=== PATIENT | female | born 1985 | race Caucasian/White ===

== ENCOUNTER 2016-11-12 20:52 | Emergency (ER) | payer SELFPAY ==
[2016-11-12] MEDS ORDERED: SODIUM CHLORIDE 1,000 ML IV STA (21:20)
--- NOTE | 2016-11-12 21:24 | PDOC ---
History of Present Illness <Lowell Perez - Last Filed: 11/12/16 21:30> - General History Source: Patient, Old Records Exam Limitations: No Limitations - History of Present Illness Initial Comments: 11/12/16 21:32 The patient is a 31 year old female with no significant past medical history who presents to the ER with dizziness for a few days. The patient notes that she was recently sick with sore throat, fever, runny nose, cough, and vomiting ( phlegm). Patient noted symptoms began to resolve but 3 days ago a family member became sick with similar symptoms and her symptoms worsened. She notes that she recently went to the doctor and was prescribed antibiotics. PCP: Dr. Kaplan <Hank Bustos - Last Filed: 11/12/16 21:34> - General Chief Complaint: Nausea/Vomiting Stated Complaint: NAUSEA/VOMITING Time Seen by Provider: 11/12/16 21:09 Past History - Psycho/Social/Smoking Cessation Hx Suicidal Ideation: No Smoking History: Never smoked Number of Cigarettes Smoked Daily: 0 Hx Alcohol Use: No Drug/Substance Use Hx: No <Lowell Perez - Last Filed: 11/12/16 21:30> <Hank Bustos - Last Filed: 11/12/16 21:34> - Past Medical History Allergies/Adverse Reactions: Allergies Allergy/AdvReac Type Severity Reaction Status Date / Time No Known Allergies Allergy Verified 04/28/15 20:02 Home Medications: Ambulatory Orders Butalb/Acetaminophen/Caffeine [Fioricet 50-300-40 mg Capsule] 1 each PO Q6H PRN #10 capsule 04/28/15 Acetaminophen/Caffeine/Butalb [Fioricet -] 1 tab PO Q4H #42 tablet 04/02/16 Ibuprofen [Motrin] 600 mg PO TID #30 tablet 04/02/16 Meclizine HCl 25 mg PO TID #30 tablet 04/02/16 Review of Systems - Review of Systems Able to Perform ROS?: Yes Constitutional: Yes: Symptoms Reported, See HPI, Fever HEENTM: Yes: Symptoms Reported, See HPI, Throat Pain, Other (Runny nose) Respiratory: Yes: See HPI, Cough ABD/GI: Yes: Symptoms Reported, See HPI, Vomiting Neurological: Yes: Symptoms reported, See HPI, Dizziness <Hank Bustos - Last Filed: 11/12/16 21:34> *Physical Exam - Physical Exam General Appearance: Yes: Nourished, Appropriately Dressed. No: Apparent Distress HEENT: positive: Normal ENT Inspection, Nasal Congestion, Rhinorrhea. negative : Sinus Tenderness Neck: positive: Supple. negative: Tender Respiratory/Chest: positive: Lungs Clear, Normal Breath Sounds. negative: Respiratory Distress Cardiovascular: positive: Regular Rhythm, Regular Rate Gastrointestinal/Abdominal: positive: Normal Bowel Sounds, Soft Extremity: positive: Normal Capillary Refill, Normal Range of Motion Integumentary: positive: Normal Color. negative: Rash Neurologic: positive: Fully Oriented, Alert, Normal Mood/Affect, Normal Response , Motor Strength 5/5 <Lowell Perez - Last Filed: 11/12/16 21:30> - Vital Signs Last Vital Signs Temp Pulse Resp BP Pulse Ox 97.9 F 98 H 18 134/89 100 11/12/16 21:00 11/12/16 21:00 11/12/16 21:00 11/12/16 21:00 11/12/16 21:00 <Hank Bustos - Last Filed: 11/12/16 21:34> Progress Note - Progress Note Progress Note: MILD DEHYDRATION NO BLOOD WORK PO HYDRATION/FOLLOW UP PMD <Lowell Perez - Last Filed: 11/12/16 21:30> *DC/Admit/Observation/Transfer <Lowell Perez - Last Filed: 11/12/16 21:30> - Attestations Scribe Attestion: 11/12/16 21:32 Documentation prepared by Hank Bustos, acting as medical coding specialist for Lowell Perez MD. <Hank Bustos - Last Filed: 11/12/16 21:34> Diagnosis at time of Disposition: Viral syndrome - Discharge Dispostion Disposition: HOME Condition at time of disposition: Stable - Referrals Referrals: Ronen Kaplan [Primary Care Provider] - Call tomorrow - Patient Instructions Additional Instructions: PLENTY OF FLUIDS (WATER/GATORADE) MOTRIN/TYLENOL FOR FEVER OR PAIN REST RETURN IF FEVER, VOMITING, SHORTNESS OF BREATH CALL YOUR DOCTOR TOMORROW
[2016-11-12 21:31] VITALS: BP 134/89; PULSE 98; TEMP 97.9; BMI 26.4
== END 2016-11-12 21:46 | disposition home or self-care (01) ==
LOC: FER 20:52
DX: B34.9 Viral infection, unspecified (principal)
CPT/HCPCS: 99282-25

== ENCOUNTER 2018-07-01 17:22 | Emergency (ER) | payer OTHER ==
[2018-07-01 17:35] VITALS: BP 119/85; PULSE 96; TEMP 98.4; BMI 35.2
[2018-07-01] MEDS ORDERED: KETOROLAC TROMETHAMINE 30 MG/1 ML VIAL IM ONE (18:13)
--- NOTE | 2018-07-01 18:19 | PDOC ---
History of Present Illness <Zelda Edwards - Last Filed: 07/01/18 18:24> <Melba Ovalles - Last Filed: 07/01/18 21:18> - History of Present Illness Initial Comments: 07/01/18 18:39 This is a 33 year old female with no significant past medical history, who presents to the emergency department today complaining of right lumbar and right buttock pain s/p fall earlier today. Patient states she slipped on ice at 12/1pm today, where she fell directly onto her buttocks. Patient was able to get up after a few minutes without assistance and was able to perform her daily routines but reports worsening pain in her R lower back. Patient took 2 Motrin without any relief. Patient notes her pain is exacerbated with prolonged standing and ambulation, and is alleviated with lying down or bending forward. Denies leg weakness or numbness. Denies saddle anesthesia. Denies incontinence of bowel or bladder. PCP: Dr. Kaplan <Mc Golden - Last Filed: 07/03/18 07:35> - General Chief Complaint: Injury Stated Complaint: FELL, BACK PAIN Time Seen by Provider: 07/01/18 17:30 Past History <Zelda Edwards - Last Filed: 07/01/18 18:24> <Melba Ovalles - Last Filed: 07/01/18 21:18> - Past Medical History COPD: No - Suicide/Smoking/Psychosocial Hx Smoking History: Never smoked Number of Cigarettes Smoked Daily: 0 Hx Alcohol Use: No Drug/Substance Use Hx: No Substance Use Type: None <Mc Golden - Last Filed: 07/03/18 07:35> - Past Medical History Allergies/Adverse Reactions: Allergies Allergy/AdvReac Type Severity Reaction Status Date / Time No Known Allergies Allergy Verified 07/01/18 17:29 Home Medications: Ambulatory Orders Naproxen 500 mg PO BID #14 tablet 07/01/18 Review of Systems - Review of Systems Comments:: 07/01/18 18:41 GENERAL/CONSTITUTIONAL: No fever or chills. No weakness. HEAD, EYES, EARS, NOSE AND THROAT: No change in vision. No ear pain or discharge. No sore throat. CARDIOVASCULAR: No chest pain, no shortness of breath, no loss of consciousness RESPIRATORY: No cough, wheezing, or hemoptysis. GASTROINTESTINAL: No nausea, vomiting, diarrhea or constipation. GENITOURINARY: No dysuria, frequency, or change in urination. MUSCULOSKELETAL: +Right low back pain. +Right buttock pain. No neck pain. SKIN: No rash NEUROLOGIC: No vertigo, no change in strength/sensation. ENDOCRINE: No increased thirst. No abnormal weight change. HEMATOLOGIC/LYMPHATIC: No anemia, easy bleeding, or history of blood clots. ALLERGIC/IMMUNOLOGIC: No hives or skin allergy. <Mc Golden - Last Filed: 07/03/18 07:35> *Physical Exam - Vital Signs Last Vital Signs Temp Pulse Resp BP Pulse Ox 98.4 F 96 H 16 119/85 100 07/01/18 17:27 07/01/18 17:27 07/01/18 17:27 07/01/18 17:27 07/01/18 17:27 <Zelda Edwards - Last Filed: 07/01/18 18:24> - Vital Signs Last Vital Signs Temp Pulse Resp BP Pulse Ox 98.4 F 96 H 16 119/85 100 07/01/18 17:27 07/01/18 17:27 07/01/18 17:27 07/01/18 17:27 07/01/18 17:27 <Melba Ovalles - Last Filed: 07/01/18 21:18> - Vital Signs Last Vital Signs Temp Pulse Resp BP Pulse Ox 98.4 F 96 H 16 119/85 100 07/01/18 17:27 07/01/18 17:27 07/01/18 17:27 07/01/18 17:27 07/01/18 17:27 - Physical Exam Comments: 07/01/18 18:41 GENERAL: Awake, alert, and fully oriented, in no acute distress. HEAD: No signs of trauma EYES: PERRLA, EOMI, sclera anicteric, conjunctiva clear ENT: Auricles normal inspection, hearing grossly normal, nares patent, oropharynx clear without exudates. Moist mucosa NECK: Nontender, no stepoffs, Normal ROM, supple, no lymphadenopathy, JVD, or masses BACK: +Right lumbar paraspinal tenderness with no midline tenderness. No stepoffs. LUNGS: Breath sounds equal, clear to auscultation bilaterally. No wheezes, and no crackles HEART: Regular rate and rhythm, normal S1 and S2, no murmurs, rubs or gallops ABDOMEN: Soft, nontender, normoactive bowel sounds. No guarding, no rebound. No masses EXTREMITIES: Normal range of motion, no edema. No clubbing or cyanosis. No cords, erythema, or tenderness NEUROLOGICAL: Cranial nerves II through XII intact. 5/5 strength and sensation in all extremities, Normal speech, normal gait, normal cerebellar function SKIN: Warm, Dry, normal turgor, no rashes or lesions noted. <Mc Golden - Last Filed: 07/03/18 07:35> ED Treatment Course - ADDITIONAL ORDERS Additional order review: Laboratory Results 07/01/18 18:10 Urine HCG, Qual Negative <Zelda Edwards - Last Filed: 07/01/18 18:24> - ADDITIONAL ORDERS Additional order review: Laboratory Results 07/01/18 18:10 Urine HCG, Qual Negative - Medications Given in the ED: ED Medications Discontinued Medications Generic Name Dose Route Start Last Admin Trade Name Natalee PRN Reason Stop Dose Admin Ketorolac Tromethamine 30 mg 07/01/18 18:13 07/01/18 18:50 Toradol Injection - IM 07/01/18 18:14 30 mg ONCE ONE Administration <Melba Ovalles - Last Filed: 07/01/18 21:18> - RADIOLOGY Radiology Studies Ordered: Category Date Time Status SPINE-LUMBAR SACRAL [RAD] Stat Radiology 07/01/18 18:02 Ordered <Mc Golden - Last Filed: 07/03/18 07:35> Medical Decision Making - Medical Decision Making 07/01/18 18:19 33 F with lower back pain after falling today. Pt with no neuro deficits to suggest cord compression/cauda equina. Exam notable for R paraspinal lumbar tenderness exacerbated by straight leg raise. Consistent with radiculopathy vs disc herniation. - UPT - XR L spine - Pain control XR negative Pt reassessed - ambulatory in ED without issue. Pain well controlled. Neurologically intact. Pt is well appearing, with normal vitals. Clinically stable for DC at this time. I discussed the physical exam findings, ancillary test results and final diagnoses with the patient. I answered all of the patient's questions. The patient was satisfied with the care received and felt comfortable with the discharge plan and treatment plan. The patient agrees to follow up with the primary care physician within 24-72 hours. <Mc Golden - Last Filed: 07/03/18 07:35> *DC/Admit/Observation/Transfer - Attestations Scribe Attestion: 07/01/18 18:24 Documentation prepared by ALFONSO Arguelles, acting as medical scientist for Mc Golden MD. <Zelda Edwards - Last Filed: 07/01/18 18:24> - Discharge Dispostion Decision to Admit order: No <Melba Ovalles - Last Filed: 07/01/18 21:18> - Attestations Physician Attestion: 07/01/18 18:23 I, Dr. Mc Golden MD, attest that this document has been prepared under my direction and personally reviewed by me in its entirety. I further attest, that it accurately reflects all work, treatment, procedures and medical decision -making performed by me. <Mc Golden - Last Filed: 07/03/18 07:35> Diagnosis at time of Disposition: Back pain, Fall, Sciatic nerve pain - Discharge Dispostion Disposition: HOME Condition at time of disposition: Good - Prescriptions Prescriptions: Naproxen 500 mg PO BID #14 tablet - Referrals Referrals: Ronen Kaplan [Primary Care Provider] - Que Preston MD [Staff Physician] - - Patient Instructions Printed Discharge Instructions: DI for Low Back Pain Additional Instructions: Follow up with one of our spine surgeons for further evaluation of your back pain. Call the number provided to make an appointment within 1 week. You will likely need a MRI. If you experience worsening pain, weakness or numbness in your leg, difficulty controlling your bowel or bladder, or any other concerning symptoms, return to the ER immediately. - Post Discharge Activity
[2018-07-01] MEDS ORDERED: KETOROLAC TROMETHAMINE 30 MG/1 ML VIAL ONE (18:36)
== END 2018-07-01 21:33 | disposition home or self-care (01) ==
LOC: FER 17:22
PROC: 3E0233Z Introduction of Anti-inflammatory into Muscle, Percutaneous Approach (ICD-10-PCS; principal; 2018-07-01)
DX: M54.5 Low back pain (principal)
CPT/HCPCS: 72100-TC-FY; 84703; 96372; 99281-25

== ENCOUNTER 2019-08-16 19:23 | Emergency (ER) | payer OTHER ==
[2019-08-16 19:29] VITALS: BP 118/81; PULSE 84; TEMP 98.2; BMI 37.0
[2019-08-16] MEDS ORDERED: ONDANSETRON 4 MG/2 ML VIAL IVPUSH ONE (20:21)
[2019-08-16] MEDS ORDERED: SODIUM CHLORIDE 1,000 ML IV STA (20:21)
[2019-08-16] MEDS ORDERED: KETOROLAC TROMETHAMINE 30 MG/1 ML VIAL IVPUSH ONE (20:21)
[2019-08-16] MEDS ORDERED: KETOROLAC TROMETHAMINE 30 MG/1 ML VIAL ONE (20:30)
[2019-08-16] MEDS ORDERED: ONDANSETRON 4 MG/2 ML VIAL ONE (20:30)
[2019-08-16 20:51] LABS: BASO % 0.9 % (0-2.0); EOS % 2.7 % (0-4.5); HEMOGLOBIN 13.3 GM/dl (10.7-15.3); LYMPH % 40.2 % (8-40); MCH 30.2 pg (25.7-33.7); MCHC 33.9 g/dl (32.0-36.0); MEAN CELL VOLUME 88.9 fl (80-96); MEAN PLT VOLUME 8.8 fl (7.5-11.1); MONO % 7.1 % (3.8-10.2); NEUT % 49.1 % (42.8-82.8); PLATELET COUNT 245 K/MM3 (134-434); RBC 4.39 M/mm3 (3.60-5.2); RDW 12.7 % (11.6-15.6); WHITE BLOOD COUNT 5.2 K/mm3 (4.0-10.8)
[2019-08-16 20:59] LABS: ALBUMIN 3.7 g/dl (3.4-5.0); BILIRUBIN,TOTAL 0.5 mg/dl (0.2-1); CALCIUM 8.6 mg/dl (8.5-10); CREATININE 0.8 mg/dl (0.55-1.3); POTASSIUM 3.7 mmol/L (3.5-5.1); TOT PROT 6.7 g/dl (6.4-8.2)
--- NOTE | 2019-08-16 22:22 | PDOC ---
Documentation entered by Aime Howard SCRIBE, acting as scribe for Giulia Desouza MD. Giulia Desouza MD: This documentation has been prepared by the Lee coburn Elijah, SCRIBE, under my direction and personally reviewed by me in its entirety. I confirm that the documentation accurately reflects all work, treatment, procedures, and medical decision making performed by me. History of Present Illness - General Chief Complaint: Pain, Acute Stated Complaint: BACK PAIN/NAUSEA Time Seen by Provider: 08/16/19 19:34 History Source: Patient Exam Limitations: No Limitations - History of Present Illness Initial Comments: 08/16/19 20:20 Patient is a 34 year old female with no reported significant past medical history who presents today with back pain and vomiting. Patient reports that she generally deals with chronic back pain, nut today she had a sudden onset of worsening back pain that she notes makes it hard for her to move. Patient also reports that she has had NBNB Vomiting for the last x3 days that she associates with lightheaded, abdominal cramps and dizziness. Patient's last meal was at 2 pm which she vomited shortly thereafter. Denies Fever and Diarrhea. Allergies: NKA PCP: Dr. Kaplan Past History - Past Medical History Allergies/Adverse Reactions: Allergies Allergy/AdvReac Type Severity Reaction Status Date / Time No Known Allergies Allergy Verified 07/01/18 17:29 Home Medications: Ambulatory Orders Diclofenac Sodium [Voltaren -] 75 mg PO BID PRN #14 tablet. 08/16/19 Naproxen 500 mg PO BID PRN 08/16/19 Ondansetron [Zofran *Odt*] 4 mg SL BID PRN #10 od.tablet 08/16/19 COPD: No Other medical history: CHRONIC BACK PAIN - Psycho Social/Smoking Cessation Hx Smoking History: Never smoked Number of Cigarettes Smoked Daily: 0 Hx Alcohol Use: No Drug/Substance Use Hx: No Substance Use Type: None Review of Systems - Review of Systems Comments:: 08/16/19 20:24 All systems are reviewed and negative except as noted in the HPI *Physical Exam - Vital Signs Last Vital Signs Temp Pulse Resp BP Pulse Ox 98.2 F 84 16 118/81 100 08/16/19 19:25 08/16/19 19:25 08/16/19 19:25 08/16/19 19:25 08/16/19 19:25 - Physical Exam 08/16/19 20:25 GENERAL: Awake, alert, and fully oriented, in no acute distress HEAD: No signs of trauma EYES: PERRLA, EOMI, sclera anicteric, conjunctiva clear ENT: Auricles normal inspection, hearing grossly normal, nares patent, oropharynx clear without exudates. Moist mucosa NECK: Normal ROM, supple, no lymphadenopathy, JVD, or masses LUNGS: Breath sounds equal, clear to auscultation bilaterally. No wheezes, and no crackles HEART: Regular rate and rhythm, normal S1 and S2, no murmurs, rubs or gallops ABDOMEN: Soft, nontender, normoactive bowel sounds. No guarding, no rebound. No masses EXTREMITIES: Normal range of motion, no edema. No clubbing or cyanosis. No cords, erythema, or tenderness BACK: + Mild Tenderness at the Midline of the Lower Lumbar Spine NEUROLOGICAL: Cranial nerves II through XII grossly intact. Normal speech, normal gait SKIN: Warm, Dry, normal turgor, no rashes or lesions noted. ED Treatment Course - LABORATORY CBC & Chemistry Diagram: 08/16/19 20:35 08/16/19 20:35 - ADDITIONAL ORDERS Additional order review: Laboratory Results 08/16/19 08/16/19 08/16/19 20:35 19:52 19:52 Sodium 135 L Potassium 3.7 Chloride 106 Carbon Dioxide 24 Anion Gap 5 L BUN 15.0 Creatinine 0.8 Est GFR (CKD-EPI)AfAm 112.27 Est GFR (CKD-EPI)NonAf 96.87 Random Glucose 89 Calcium 8.6 Total Bilirubin 0.5 AST 15 ALT 12 L Alkaline Phosphatase 55 Total Protein 6.7 Albumin 3.7 Urine Color Other Urine Appearance Slightly Urine pH 7.0 Urine Protein Negative Urine Glucose (UA) Negative Urine Ketones Negative Urine Blood Negative Urine Nitrite Negative Urine Bilirubin Negative Urine Urobilinogen 0.2 Ur Leukocyte Esterase Negative Urine HCG, Qual Negative 08/16/19 20:35 RBC 4.39 MCV 88.9 MCHC 33.9 RDW 12.7 MPV 8.8 Neutrophils % 49.1 Lymphocytes % 40.2 H Monocytes % 7.1 Eosinophils % 2.7 Basophils % 0.9 - Medications Given in the ED: ED Medications Discontinued Medications Generic Name Dose Route Start Last Admin Trade Name Natalee PRN Reason Stop Dose Admin Sodium Chloride 1,000 mls @ 1,000 mls/hr 08/16/19 20:21 08/16/19 20:40 Normal Saline - IV 08/16/19 21:20 1,000 mls/hr ASDIR STA Administration Ketorolac Tromethamine 30 mg 08/16/19 20:21 08/16/19 20:40 Toradol Injection - IVPUSH 08/16/19 20:22 30 mg ONCE ONE Administration Ondansetron HCl 4 mg 08/16/19 20:21 08/16/19 20:40 Zofran Injection IVPUSH 08/16/19 20:22 4 mg ONCE ONE Administration Medical Decision Making - Medical Decision Making As noted above, this 34-year-old woman with a history of low back pain (seen last year by of the orthopedic staff), presents with few day history of nausea/vomiting and 1 day history of increased lower back pain. Patient denies any recent overuse or trauma to the lower back. She has no radiation of her pain into her buttock or leg. She describes vomiting ""9 times" today: Mainly partially digested food, no blood or coffee grounds noted. Despite her nausea and vomiting, the patient attempted to take naproxen OTC for her lower back pain today. She found that, although this is usually effective for her chronic pain, today it was ineffective. Patient has not had any diarrhea or fever. Exam as noted PGU/urinalysis performed: PGU negative. No evidence of abnormality on urinalysis IV access obtained and 1 L normal saline IV given to the patient along with Zofran 4 mg and Toradol 30 mg IV. CBC and chemistry profile sent Laboratory evaluation essentially normal. Patient feels significantly better after IV hydration and medications. Clinical presentation most consistent with acute gastroenteritis as well as acute episode of chronic lower back pain Prescriptions for Zofran ODT 4 mg up to twice a day as needed for persistent nausea as well as diclofenac 75 mg twice a day with food as needed for back pain sent to her pharmacy Patient is unsure if she has had an MRI in the past through . Since she has this new flareup of her low back pain after no apparent overuse or trauma, she should follow-up with . She should call the office to arrange this follow-up tomorrow. Meanwhile, she should follow a light diet and advance cautiously to full diet. She should use Zofran ODT as needed for recurrent nausea. She should return to ER if she has persistent vomiting or develops fever/ abdominal pain Discharge - Discharge Information Problems reviewed: Yes Clinical Impression/Diagnosis: Gastroenteritis Lower back pain Qualifiers: Chronicity: chronic Back pain laterality: midline Sciatica presence: without sciatica Qualified Code(s): M54.5 - Low back pain; G89.29 - Other chronic pain Condition: Stable Disposition: HOME - Additional Discharge Information Prescriptions: Diclofenac Sodium [Voltaren -] 75 mg PO BID PRN #14 tablet.dr PRN Reason: Back Pain Ondansetron [Zofran *Odt*] 4 mg SL BID PRN #10 od.tablet PRN Reason: Nausea - Follow up/Referral Referrals: Ronen Kaplan [Primary Care Provider] - Que Preston MD [Staff Physician] - Call tomorrow - Patient Discharge Instructions Patient Printed Discharge Instructions: DI for Low Back Pain, DI for Viral Gastroenteritis -- Adult Additional Instructions: Light diet, advance diet cautiously Zofran ODT 4 mg up to twice a day as needed for nausea Call Dr. Preston's office tomorrow to arrange follow-up as discussed Stop Dennis; diclofenac 75 mg twice a day as needed for back pain/take with food Return to ER if you have persistent vomiting or develop fever/abdominal pain Follow-up with your general medical doctor within the next week - Post Discharge Activity
== END 2019-08-16 22:18 | disposition home or self-care (01) ==
LOC: FER 19:23
PROC: 3E0333Z Introduction of Anti-inflammatory into Peripheral Vein, Percutaneous Approach (ICD-10-PCS; principal; 2019-08-16)
PROC: 3E033GC Introduction of Other Therapeutic Substance into Peripheral Vein, Percutaneous Approach (ICD-10-PCS; 2019-08-16)
PROC: 3E0337Z Introduction of Electrolytic and Water Balance Substance into Peripheral Vein, Percutaneous Approach (ICD-10-PCS; 2019-08-16)
DX: M54.5 Low back pain (principal); G89.29 Other chronic pain; K52.9 Noninfective gastroenteritis and colitis, unspecified
CPT/HCPCS: 36415; 80053; 81003; 84703; 85025; 99284-25; J7030

== ENCOUNTER 2019-08-17 11:55 | Emergency (ER) | payer OTHER ==
[2019-08-17 12:16] VITALS: BP 132/95; PULSE 88; TEMP 98.5; BMI 36.7
--- NOTE | 2019-08-17 12:18 | PDOC ---
Attending Attestation - Resident Resident Name: Curly Hudson - ED Attending Attestation I have performed the following: I have examined & evaluated the patient, The case was reviewed & discussed with the resident, I agree w/resident's findings & plan, Exceptions are as noted - HPI HPI: 08/17/19 13:52 Seen yesterday in ER for low back pain, thought to be musculoskeletal. At that time CBC chemistries and urinalysis were clear. test was negative. Pain today is primarily in the right mid back with radiation to the abdomen, bilateral suprapubic area. She ate breakfast this morning and her appetite is good. There is been no nausea, vomiting, or diarrhea. She is uncertain of her last menses. But she has not noted any particular irregularity, unusual vaginal bleeding, or discharge. There are no urinary tract symptoms including dysuria frequency urgency hesitancy or hematuria. - Physicial Exam PE: 08/17/19 13:54 Physical exam: Normal vital signs. No fever. Abdomen nondistended. Bowel sounds normal. Soft without mass organomegaly. There is mild suprapubic tenderness to deep palpation without localization to the right or left lower quadrants. There is no guarding or rebound. There is no CVAT. Pelvic exam reveals a closed office, no significant discharge or bleeding. No cervical motion tenderness, adnexal masses or tenderness. Exam was performed by Dr. Hudson with my supervision. - Medical Decision Making 08/17/19 13:56 Assessment: Repeat CBC chemistries and urinalysis are again normal. Specifically, there is no elevated white count and no blood in the urine. It is unlikely that there is significant abdominal or pelvic disease. Symptomatology, labs, and exam are most consistent with ovulation or ruptured ovarian cyst. No sign of renal colic, UTI, appendicitis, diverticulitis Plan: Reassure. Anti-inflammatory medication. Referral to [facility] for follow- up. Return to ER if pain worsens, or other symptoms such as fever/chills, nausea, vomiting, diarrhea, dysuria, vaginal bleeding or discharge or occur. Fully ambulatory and in no significant distress at discharge to follow-up as directed
--- NOTE | 2019-08-17 12:22 | PDOC ---
History of Present Illness - General Chief Complaint: Back Pain Stated Complaint: BACK PAIN Time Seen by Provider: 08/17/19 12:17 - History of Present Illness Initial Comments: 08/17/19 22:20 34F no PMH c/o right paraspinal pain radiating through flank and inguinal region. Was seen in [facility] yesterday for abdominal pain, back pain, and vomiting. Vomiting has since resolved. Last visit hCG neg, UA w/o blood or infection, and labs reassuring. Today pain has not improved despite diclofenac. Denies n/v, f/c , urinary sx, vaginal bleeding or dc. LMP unknown. Past History - Past Medical History Allergies/Adverse Reactions: Allergies Allergy/AdvReac Type Severity Reaction Status Date / Time No Known Allergies Allergy Verified 08/17/19 11:57 Home Medications: Ambulatory Orders Diclofenac Sodium [Voltaren -] 75 mg PO BID PRN #14 tablet. 08/16/19 Ondansetron [Zofran *Odt*] 4 mg SL BID PRN #10 od.tablet 08/16/19 Ibuprofen 800 mg PO TID PRN #20 tablet 08/17/19 COPD: No - Psycho Social/Smoking Cessation Hx Smoking History: Never smoked Number of Cigarettes Smoked Daily: 0 Hx Alcohol Use: No Drug/Substance Use Hx: No Substance Use Type: None Review of Systems - Review of Systems Comments:: 08/17/19 22:20 CONSTITUTIONAL: Denies F / C RESP: Denies SOB CARD: Denies chest pain GI: Endorses abdominal pain. Denies N / V / D, bloody stool, inability to tolerate PO : Denies dysuria, hematuria, frequency SKIN: Denies rashes NEURO: Denies numbness, tingling, weakness *Physical Exam - Vital Signs Last Vital Signs Temp Pulse Resp BP Pulse Ox 98.5 F 88 18 132/95 100 08/17/19 11:55 08/17/19 11:55 08/17/19 11:55 08/17/19 11:55 08/17/19 11:55 - Physical Exam 08/17/19 22:20 GEN: NAD, comfortable. AAOx3 HEENT: NC/AT. No facial asymmetry. Normal voice. Supple neck w/ FROM. CV: S1/S2, RRR, no m/r/g LUNG: CTAB, no wheezes, crackles, rales, rhonchi. GI: soft, ndnt, +BS, no guarding, no rebound. No masses. Neg CVAT b/l. : Exam chaperoned by ED MA. No discharge, bleeding, and atrophy on inspection. Cervix visualized closed w/ scant thin almaguer discharge; Gn/Ch swab obtained. No blood in vault. Neg CMT on bimanual exam EXTREMITIES: No obvious deformities of all extremities. SKIN: warm, dry, normal turgor PSYCH: normal mood and affect NEURO: Moving all extremities well. Ambulates w/ normal gait. ED Treatment Course - LABORATORY CBC & Chemistry Diagram: 08/17/19 13:00 08/17/19 13:00 Medical Decision Making - Medical Decision Making 08/17/19 12:49 34F c/o right paraspinal pain radiating through flank and inguinal canal. No longer vomiting since [facility] visit yesterday. Benign exam. - CBC, CMP - UA, UC, PREG - GC/CH - Tylenol 08/17/19 13:55 labs reviewed DC home w/ PCP f/u Discharge - Discharge Information Problems reviewed: Yes Clinical Impression/Diagnosis: Abdominal cramping Back pain Qualifiers: Back pain location: low back pain Chronicity: unspecified Back pain laterality : right Sciatica presence: without sciatica Qualified Code(s): M54.5 - Low back pain Condition: Stable Disposition: HOME - Admission No - Additional Discharge Information Prescriptions: Ibuprofen 800 mg PO TID PRN #20 tablet PRN Reason: Pain - Follow up/Referral - Patient Discharge Instructions Patient Printed Discharge Instructions: DI for Low Back Pain Additional Instructions: You received medication for pain in the Emergency Department, do not take another pain medication until 6 hours after your discharge. We sent a prescription to your pharmacy, please pick it up and take as directed. Do not take diclofenac with this medication. Follow up with your RN ENDOCRINOLOGY in the next 2-3 days. Follow up with your Primary Care Doctor in the next 4-5 days. Immediately return to the Emergency Department if you experience worsening pain , inability to eat or drink, high fevers, or anything that concerns you Recibi medicamentos para el dolor en el Departamento de Emergencias, no tome otro medicamento para el dolor hasta 6 horas despus de berman jacoby. Enviamos jeff receta a berman farmacia, recjala y tmela segn las indicaciones. No tome diclofenaco con fernanda medicamento. Carly un seguimiento con berman RN ENDOCRINOLOGY en los prximos 2-3 jon. Carly un seguimiento con berman mdico de atencin primaria en los prximos 4-5 jon. Regrese de inmediato al Departamento de Emergencias si experimenta un empeoramiento del dolor, incapacidad para comer o beber, fiebre jacoby o cualquier cosa que le preocupe. - Post Discharge Activity Work/Back to School Note: Back to Work
[2019-08-17] MEDS ORDERED: ACETAMINOPHEN 1000 MG/100 ML VIAL (NON FORMULARY) IVPB ONE (12:45)
[2019-08-17] MEDS ORDERED: ACETAMINOPHEN INJECTION 100 ML IVPB ONE (13:07)
[2019-08-17 13:20] LABS: BASO % 0.8 % (0-2.0); EOS % 2.4 % (0-4.5); HEMATOCRIT 41.2 % (32.4-45.2); HEMOGLOBIN 13.6 GM/dl (10.7-15.3); LYMPH % 41.8 % (8-40); MCH 29.6 pg (25.7-33.7); MEAN CELL VOLUME 89.8 fl (80-96); MEAN PLT VOLUME 8.8 fl (7.5-11.1); PLATELET COUNT 259 K/MM3 (134-434); RBC 4.59 M/mm3 (3.60-5.2); RDW 12.9 % (11.6-15.6); WHITE BLOOD COUNT 4.6 K/mm3 (4.0-10.8)
[2019-08-17 13:29] LABS: ALBUMIN 3.9 g/dl (3.4-5.0); CALCIUM 8.4 mg/dl (8.5-10); CREATININE 0.7 mg/dl (0.55-1.3); POTASSIUM 4.3 mmol/L (3.5-5.1); TOT PROT 6.9 g/dl (6.4-8.2)
[2019-08-17 13:32] LABS: BILIRUBIN,TOTAL 1.4 mg/dl (0.2-1)
[2019-08-17] MEDS ORDERED: KETOROLAC TROMETHAMINE 30 MG/1 ML VIAL IVPUSH ONE (13:43)
[2019-08-17] MEDS ORDERED: KETOROLAC TROMETHAMINE 30 MG/1 ML VIAL ONE (13:50)
== END 2019-08-17 14:02 | disposition home or self-care (01) ==
LOC: FER 11:55
PROC: 3E033NZ Introduction of Analgesics, Hypnotics, Sedatives into Peripheral Vein, Percutaneous Approach (ICD-10-PCS; principal; 2019-08-17)
PROC: 3E0333Z Introduction of Anti-inflammatory into Peripheral Vein, Percutaneous Approach (ICD-10-PCS; 2019-08-17)
DX: R10.2 Pelvic and perineal pain (principal); M54.5 Low back pain
CPT/HCPCS: 36415; 80053; 81003; 84703; 85025; 87086; 87491; 87591; 99283-25; J0131

== ENCOUNTER 2020-10-16 15:39 | Emergency (ER) | payer OTHER ==
[2020-10-16 16:07] VITALS: BP 124/83; PULSE 87; TEMP 98.7; BMI 29.2
[2020-10-16 16:33] LABS: HCG,QUALITATIVE URINE Negative
[2020-10-16] MEDS ORDERED: ACETAMINOPHEN 325 MG TABLET (FP) PO ONE (16:43)
[2020-10-16] MEDS ORDERED: ACETAMINOPHEN 325 MG TABLET (FP) ONE (16:52)
[2020-10-16 18:20] LABS: EOS % 1.2 % (0-4.5); HEMATOCRIT 47.9 % (32.4-45.2); LYMPH % 32.2 % (8-40); MCH 31.1 pg (25.7-33.7); MCHC 33.3 g/dl (32.0-36.0); MEAN CELL VOLUME 93.3 fl (80-96); MEAN PLT VOLUME 8.2 fl (7.5-11.1); MONO % 5.7 % (3.8-10.2); NEUT % 57.9 % (42.8-82.8); PLATELET COUNT 290 K/MM3 (134-434); RBC 5.13 M/mm3 (3.60-5.2); RDW 14.1 % (11.6-15.6); WHITE BLOOD COUNT 6.7 K/mm3 (4.0-10.8)
[2020-10-16 18:42] LABS: BILIRUBIN,TOTAL 0.9 mg/dl (0.2-1); CREATININE 0.6 mg/dl (0.55-1.3); POTASSIUM 4.1 mmol/L (3.5-5.1); TOT PROT 7.1 g/dl (6.4-8.2)
== END 2020-10-16 21:29 | disposition home or self-care (01) ==
LOC: FER 15:39
DX: N83.201 Unspecified ovarian cyst, right side (principal)
CPT/HCPCS: 36415; 74177-TC; 76830-TC; 80053; 81003; 84703; 85025; 87086; 87491; 87591; 99284-25; Q9967

== ENCOUNTER 2021-11-03 18:56 | Emergency (ER) | payer OTHER ==
[2021-11-03 19:03] VITALS: BP 90/70; PULSE 87; TEMP 98.5; BMI 25.2
[2021-11-03 20:17] LABS: EPITHELIAL CELLS MODERATE /hpf
[2021-11-03] MEDS ORDERED: SULFAMETHOXAZOLE/TRIMETHOPRIM 800MG/160MG D.S. TABLET PO ONE (20:22)
[2021-11-03] MEDS ORDERED: SULFAMETHOXAZOLE/TRIMETHOPRIM 800MG/160MG D.S. TABLET ONE (20:42)
== END 2021-11-03 20:57 | disposition home or self-care (01) ==
LOC: FER 18:56
DX: N12 Tubulo-interstitial nephritis, not specified as acute or chronic (principal)
CPT/HCPCS: 81003; 81015; 84703; 87077; 87086; 99283-25

== ENCOUNTER 2022-11-24 19:30 | Emergency (ER) | payer OTHER ==
[2022-11-24 19:42] VITALS: BP 121/75; PULSE 86; RESP 18; TEMP 97.8; BMI 25.2
[2022-11-24 20:15] LABS: HCG,QUALITATIVE URINE Positive
[2022-11-24] MEDS ORDERED: ONDANSETRON *ODT* 4 MG TABLET ONE (21:15)
[2022-11-24] MEDS ORDERED: ACETAMINOPHEN 325 MG TABLET (FP) ONE (21:15)
[2022-11-24] MEDS ORDERED: ACETAMINOPHEN 325 MG TABLET (FP) PO ONE (21:41)
[2022-11-24] MEDS ORDERED: ONDANSETRON *ODT* 4 MG TABLET SL ONE (21:41)
== END 2022-11-24 22:02 | disposition home or self-care (01) ==
LOC: FER 19:30
DX: O34.81 Maternal care for other abnormalities of pelvic organs, first trimester (principal); N83.291 Other ovarian cyst, right side; N83.292 Other ovarian cyst, left side; O26.891 Other specified pregnancy related conditions, first trimester; O21.9 Vomiting of pregnancy, unspecified; R10.84 Generalized abdominal pain; Z3A.01 Less than 8 weeks gestation of pregnancy
CPT/HCPCS: 76801-TC; 81003; 84703; 99284-25; Q0162